=== PATIENT | male | born 1985 | race Caucasian/White ===

== ENCOUNTER → 2021-05-17 | Outpatient (REF) ==
--- NOTE | 2021-05-17 16:43 | REP ---
INDICATION: BACK AND KNEE PAIN COMPARISON: 08/23/2015 TECHNIQUE: Five views FINDINGS: Status post ORIF status quo. No acute fracture, dislocation, or subluxation is identified. IMPRESSION: No significant change from 08/23/2015. There is no evidence of an acute osseous abnormality. <Electronically signed by Wilfrid Valencia > 05/17/21 [id number]
--- NOTE | 2021-05-17 17:01 | REP ---
INDICATION: BACK AND KNEE PAIN. COMPARISON: 08/23/2015 TECHNIQUE: Three views FINDINGS: There are superior endplate compression deformities L1 through L5 inclusive. This has developed at L1-2 and has increased slightly L3 through L5. There is disc space narrowing status quo. Vertebral body alignment is unchanged. There is a dextroconvex curve status quo. IMPRESSION: Multiple vertebral body compression deformities as described above. The age of these cannot be determined by this exam. <Electronically signed by Wilfrid Valencia > 05/17/21 [id number]
== END ==
LOC: M PLAIMG 14:25
PROVIDERS: ATTEND Internal Medicine
DX: M54.50 Low back pain, unspecified (principal); M25.562 Pain in left knee